=== PATIENT | male | born 1930 | race Caucasian/White ===

== ENCOUNTER 2017-10-20 01:40 | Inpatient (IN) | payer BC, MEDICARE ==
[2017-10-20] VITALS (67 sets, daily range): BP systolic 82–137; BP diastolic 48–94
[~2017-10-20] VITALS: Ht 175.3 cm; Wt 93.4 kg
[~2017-10-20 01:40] MED LIST: ALLO300T2 PO; ASCO-375 PO; Acetaminophen PO; BISA10SU8 RC; COLC0.6T67 PO; CYAN10009 PO; FOLI0.8T PO; Glycerin RC; LACT10SO6 PO; METO2.5T2 PO; MULT1TAB73 PO; POLY17PO4 PO; QUET100T PO; QUET25TA PO; SENN-15 PO; VITA1CAP PO
[2017-10-20] MEDS ORDERED: FUROSEMIDE 20 MG/2 ML VIAL IVP ONE (01:45)
[2017-10-20] MEDS ORDERED: IV NORMAL SALINE 500 ML BAG IV ONE (01:45)
[2017-10-20] MEDS ORDERED: [UNRECOGNIZED DRUG - CODE] TOP (02:02)
[2017-10-20] MEDS ORDERED: CALC-770 PO (02:02)
[2017-10-20] MEDS ORDERED: IPRA3AMP IH (02:02)
[2017-10-20] MEDS ORDERED: POTA20PA3 PO (02:02)
[2017-10-20] MEDS ORDERED: [UNRECOGNIZED DRUG - OTHER] (02:02)
[2017-10-20] MEDS ORDERED: [UNRECOGNIZED DRUG - CODE] PO (02:02)
[2017-10-20] MEDS ORDERED: CYAN10009 PO (02:02)
[2017-10-20] MEDS ORDERED: FURO-152 PO (02:02)
[2017-10-20] MEDS ORDERED: MULT-15 PO (02:02)
[2017-10-20] MEDS ORDERED: GUAI240S8 PO (02:02)
[2017-10-20 02:13] LABS: BASOPHILS # (AUTO) 0.1 K/uL (0.0-8.0); BASOPHILS % (AUTO) 0.4 % (0.0-2.0); HEMATOCRIT 29.8 % (36.7-47.1); HEMOGLOBIN 9.7 g/dL (12.5-16.3); LYMPHOCYTES # (AUTO) 0.7 K/uL (20.0-40.0); LYMPHOCYTES % (AUTO) 5.1 % (20.5-51.5); MEAN CORPUSCULAR HGB CONC 33 g/dL (32.5-36.3); MEAN CORPUSCULAR VOLUME 97.9 fL (73.0-96.2); MONOCYTES # (AUTO) 1.1 K/uL (2.0-10.0); MONOCYTES % (AUTO) 7.6 % (0.0-11.0); NEUTROPHILS # (AUTO) 12.4 K/uL (1.8-8.9); NEUTROPHILS % (AUTO) 86.9 % (38.5-71.5); PLATELET COUNT (AUTO) 168 K/uL (152-348); RED BLOOD CELL COUNT(AUTO) 3.04 MIL/uL (4.06-5.63); WHITE BLOOD COUNT (AUTO) 14.2 K/uL (3.6-10.2)
[2017-10-20 02:14] LABS: *BILIRUBIN,URIN NEGATIVE (NEGATIVE); *BLOOD, URINE 2+ (NEGATIVE); *CLARITY,URINE CLOUDY (CLEAR); *COLOR,URINE YELLOW (YELLOW); *KETONES,URINE NEGATIVE (NEGATIVE); *PROTEIN,URINE 2+ (NEGATIVE); *UROBILINOGEN,URINE 0.2 E.U./dl (NORMAL); LEUKOCYTE ESTERASE ,URINE 1+ (NEGATIVE); NITRITE, URINE NEGATIVE (NEGATIVE); UGLUCOSE NEGATIVE (NEGATIVE)
[2017-10-20 02:26] LABS: BACTERIA,URINE MODERATE /HPF (NONE SEEN); SQUAMOUS EPITHELIAL CELL,UR MODERATE /HPF (NONE SEEN); URINE AMORPHOUS URATE MODERATE /HPF; WBC,URINE 20-50 /HPF (0-3)
[2017-10-20] MEDS ORDERED: LEVOFLOXACIN 750 MG/D5W 150 ML PIGGYBACK IV ONE (02:30)
[2017-10-20] MEDS ORDERED: FUROSEMIDE 40 MG/4 ML VIAL ONE (02:31)
[2017-10-20] MEDS ORDERED: VANCOMYCIN IV 1,000 MG in IV DEXTROSE 5% 250 ML IV ONE (02:45)
[2017-10-20 02:52] LABS: CARBON DIOXIDE 24 mmol/L (21-32); CHLORIDE 113 mmol/L (98-107); CREATININE 3.7 mg/dL (0.6-1.3); GLUCOSE 176 mg/dL (74-106); POTASSIUM 3.9 mmol/L (3.5-5.1); UREA NITROGEN, BLOOD 72 mg/dL (7-18)
[2017-10-20] MEDS ORDERED: LEVOFLOXACIN 750MG/D5W 150 ML IV ONE (02:59)
[2017-10-20 03:14] LABS: BILIRUBIN,DIRECT 0.1 mg/dL (0.0-0.2); BILIRUBIN,TOTAL 0.2 mg/dL (0.1-1.0)
[2017-10-20 03:15] LABS: ALANINE AMINOTRANSFERASE 24 U/L (16-63); ALKALINE PHOSPHATASE 106 U/L (50-136); ASPARTATE AMINOTRANSFERASE 33 U/L (15-37)
--- NOTE | 2017-10-20 03:15 | NUR ---
PATIENT OFF BIPAP, PLACED ON NON-REBREATHER MASK.
[2017-10-20 03:16] LABS: TOTAL PROTEIN, SERUM 6.7 g/dL (6.4-8.2)
--- NOTE | 2017-10-20 03:42 | NUR ---
PATIENT PLACED BACK ON BIPAP.
[2017-10-20] MEDS ORDERED: VANCOMYCIN 1000 MG VIAL ONE (03:43)
--- NOTE | 2017-10-20 04:10 | NUR ---
PATIENT INTUBATED BY DR. BARRIENTOS
[2017-10-20] MEDS ORDERED: MIDAZOLAM HCL 5 MG/ML VIAL ONE (04:24)
[2017-10-20] MEDS: PROPOFOL 100 ML IV PRN ×4 (04:25→20:46)
--- NOTE | 2017-10-20 04:25 | NUR ---
PATIENT STARTED ON PROPOFOL RATE PER POLICY.
[2017-10-20] MEDS ORDERED: PROPOFOL 100 ML ONE (04:31)
[2017-10-20] MEDS ORDERED: NOREPINEPHRINE BITARTRATE 8 MG in IV DEXTROSE 5% 500 ML IV ONE (04:45)
--- NOTE | 2017-10-20 04:45 | NUR ---
STARTED ON LEVOPHED PER POLICY.
[2017-10-20] MEDS ORDERED: NOREPINEPHRINE BITARTRATE 4 MG/4 ML VIAL IV ONE ×2 (04:50→04:51)
--- NOTE | 2017-10-20 05:00 | NUR ---
LEVOPHED RATE AT 23MCG/MIN AT THIS TIME. PROPOFOL RATE AT 20MCG/KG/MIN.
--- NOTE | 2017-10-20 05:35 | NUR ---
Bedside report received from CYLINDER DYER. Patient on mechanical ventilator A/C 18, TV 600, FIO2 100%. ETT 7.5, and aout 23cm lip line. Patient on propofol running at 25mcg/kg/min, also noted to be on levophed running at 23mcg/min SBP within desired limits. Peripheral access patent Bilateral forearms.
--- NOTE | 2017-10-20 05:45 | NUR ---
Pt. admitted to CCU , under care of Isis DUKE Belongs List completed.
[2017-10-20 05:53] LABS: ABG BASE EXCESS -5.6 mmol/L; ABG HCO3 20.5 mmol/L; ABG PCO2 43.2 mmHg (35.0-45.0); ABG PH 7.295 (7.350-7.450); ABG PO2 158.3 mmHg (75.0-100.0); ABG SITE RIGHT RADIAL; ABG TOTAL HEMOGLOBIN 9.8 G/dL (13.5-18.0); COHb 0.3 % (0.5-1.5); MetHb 0.3 % (0.0-1.5); O2Hb 98.2 % (94.0-97.0); VENT MODE VENT - A/C
--- NOTE | 2017-10-20 06:30 | NUR ---
At this time patient arrive from ER. via gurney, on ventilator sedated and with propofol running, Patient situated on ICU bed, patient started waking up at this time, bitting the ETT, triggering ventilator alarm. propofol titrated for sedation. Immediately placed on [id number]. connected to bedside monitor. vitals signs within desired limits, see vitals signs flow sheet.
--- NOTE | 2017-10-20 06:35 | NUR ---
Sepsis protocol completed in E.R. as reported.
--- NOTE | 2017-10-20 06:36 | NUR ---
PT CAME IN BY RESCUE, WITH CPAP MASK IN PLACE AT 100% , PT NOT RESPONDING, TO STIMULI, PT THEN PLACED ON BI/PAP WITH LARGE MASK APPROX, 0200 , WITH INITIAL SETTINGS, 15/5 PSV 10, RR16, 100% THEN TAKEN OFF APPROX, 0310 FOR 10 MINS, THEN PLACED ON NRB MASK @ 100, PT WITH INCREASE RESP. DISTRESS, PT PLACED BACK ON BI/PAP WITH 100%, THEN ABG WAS DRAWN, THEN PT INTUBATED BY DR BARRIENTOS, WITH 7.5 ET/TUBE IN PLACE 23CM LIP LINE, SPUTUM SAMPLE DONE IN ER, WITH HME AND ADKINS , IN PLACE, WITH INITAL VENT SETTINGS, A/C 18, VT 600ML ,100% , PEEP 5, PT DOES ASSIST AT TIMES, RT ASSIST ,PT WAS PLACED ON ALMAGUER VENT @ 0417,THEN REPEAT ABG APPROX, 545, SHOWN TO DR BARRIENTOS, CHANGE FIO2 @ 80%, THEN TAKEN TO CCU 3 WITH RT ASSIST, Claudette FLORES DRIED FRUIT WASHER Addendum: 10/20/17 at 0642 by BRENDA FLORES RT Amended: Links added.
--- NOTE | 2017-10-20 06:45 | NUR ---
A call to admitting physician, and spoke with SECURITIES TELLER. Anna phone report with update see orders.
[2017-10-20] MEDS ORDERED: ZOLPIDEM 5 MG TABLET PO PRN (07:30)
[2017-10-20] MEDS ORDERED: Z GUARD REMEDY PASTE 57 GM TUBE TOP PRN ×2 (07:30→20:45)
[2017-10-20] MEDS ORDERED: PIPERACILLIN/TAZOBACTAM/D5W 3.375 G in PREMIXED 1 EACH IV SCH (07:30)
[2017-10-20] MEDS ORDERED: ONDANSETRON 4 MG/2 ML VIAL IV PRN (07:30)
[2017-10-20] MEDS ORDERED: HYDROCODONE/APAP 5-325MG TABLET PO PRN (07:30)
[2017-10-20] MEDS ORDERED: ACETAMINOPHEN 325 MG TABLET PO PRN (07:30)
--- NOTE | 2017-10-20 07:43 | NUR ---
RECEIVED PT ON ALMAGUER VENT WITH VENT SETTINGS OF AC 18 VT 600, PEEP +5, FIO2 80% . PT IS ORALLY INTUBATED WITH 7.5 ETT APPROXIMATELY 24CM LIP LINE VIA ANCHOR FAST. VENT CHECK DONE. ALARMS CHECKED, ARE ON AND AUDIBLE. SUCTIONED MOD. AMOUNT OF THICK, BLOOD-TINGED SECRETIONS. HME CHANGED. ORAL CARE DONE. NO S/S OF RESPIRATORY DISTRESS NOTED. AMBU BAG IS AT BEDSIDE. NO S/S OF RESPIRATORY DISTRESS NOTED. WILL CONTINUE TO MONITOR PT.
--- NOTE | 2017-10-20 07:44 | NUR ---
A call from Christophe Dumont Pt's son, MR. Saeed updated on his father's condition and call back number received, and given to TOP TAPER MACHINE who later spoke with him and updated him on his dad condition. unit fax number also provided to Mr. Saeed awaiting SAUL to be faxed.
[2017-10-20] MEDS ORDERED: PROPOFOL 100 ML IV PRN (07:45)
--- NOTE | 2017-10-20 08:00 | NUR ---
Orders to insert NG tube received and carried.
[2017-10-20] MEDS: ACETYLCYSTEINE 10% 4ML VIAL NEB SCH ×3 (08:23→23:30)
[2017-10-20] MEDS: IPRATROPIUM BROMIDE 0.5 MG/2.5 ML NEBU NEB PRN ×3 (08:23→23:31)
[2017-10-20] MEDS: ALBUTEROL SULFATE 2.5 MG/3 ML NEBU NEB PRN ×3 (08:23→23:31)
[2017-10-20] MEDS ORDERED: HEPARIN SODIUM,PORCINE 5,000 UNITS/ML VIAL SQ SCH (09:00)
[2017-10-20] MEDS ORDERED: CALCIUM CARBONATE PO SCH (09:00)
[2017-10-20] MEDS ORDERED: VITAMIN D3 PO SCH (09:00)
[2017-10-20] MEDS ORDERED: MULTIVITAMINS PO SCH (09:00)
[2017-10-20] MEDS ORDERED: [UNRECOGNIZED DRUG - OTHER] PO SCH (09:00)
[2017-10-20] MEDS: NOREPINEPHRINE BITARTRATE 8 MG in IV DEXTROSE 5% 500 ML IV PRN ×3 (09:13→22:56)
[2017-10-20] MEDS ORDERED: SUCCINYLCHOLINE CHLORIDE 200 MG/10 ML VIAL IV ONE (10:15)
--- NOTE | 2017-10-20 10:23 | NUR ---
REGGIE in progress.
--- NOTE | 2017-10-20 10:41 | NUR ---
troponin 0f 0.853 notified to physician
[2017-10-20] MEDS ORDERED: ASPIRIN 325 MG TABLET GT ONE (11:00)
[2017-10-20] MEDS: CYANOCOBALAMIN 1,000 MCG TABLET PO SCH (11:25)
[2017-10-20] MEDS: ALLOPURINOL 300 MG TABLET PO SCH (11:25)
[2017-10-20] MEDS: MULTIVITAMINS,THERAPEUTIC TABLET PO SCH (11:25)
[2017-10-20] MEDS: LACTULOSE 20 G/30 ML LIQUID UDC PO SCH ×2 (11:25→20:47)
[2017-10-20] MEDS: CALCIUM CARB/VITAMIN D 500MG-200UNITS TABLET PO SCH (11:25)
--- NOTE | 2017-10-20 11:30 | NUR ---
DR. Mora in the unit to examine patient, full report given orders received, see order hx.
--- NOTE | 2017-10-20 11:30 | NUR ---
Dr. Winston in the unit to examine patient, full report given orders to start heparin drip received. Addendum: 10/20/17 at 1833 by ANNIE SUNG RN standing orders to bolus patient with 500-1000 ml normal saline if sbp does not improve.
[2017-10-20] MEDS: IV NS 1000 ML 1,000 ML IV PRN (11:35)
[2017-10-20] MEDS ORDERED: HEPARIN SODIUM,PORCINE 5,000 UNITS/ML VIAL IV ONE (12:00)
[2017-10-20] MEDS ORDERED: HEPARIN SODIUM,PORCINE 5,000 UNITS/ML VIAL IV PRN (12:00)
[2017-10-20] MEDS: HEPARIN/D5W DRIP 500 ML IV PRN (12:06)
[2017-10-20] MEDS: PANTOPRAZOLE SODIUM 40 MG VIAL IV SCH (12:31)
[2017-10-20] MEDS: MEROPENEM 0.5 G in IV NORMAL SALINE 50 ML IV SCH (13:15)
--- NOTE | 2017-10-20 13:15 | NUR ---
FIO2 down to 70%.
--- NOTE | 2017-10-20 14:10 | NUR ---
FIO@ down to 60% at this time as reported.
--- NOTE | 2017-10-20 14:15 | NUR ---
PICC line insertion finished at this time. IV site noted to be bloody pressure dressing applied.
--- NOTE | 2017-10-20 16:39 | NUR ---
PHARMACY CLINICAL NOTES(VANCOMYCIN DOSING) S: 87 YO MALE WITH DX OF UTI, SEPSIS AND HCAP O: BUN/SCR 72/3.7, WBC 14.2, TEMP 97.9 A/P: PT RECEIVED VANCOMYCIN 1 GM ON 10/20 @ 0330 , DUE TO ADVANCED AGE AND COMPROMISED RENAL FXN WILL DOSE VANCOMYCIN BY FALL OF THE LEVEL. ORDERED VANCOMYCIN LEVEL IN AM (0600) WITH OTHER LABS. WILL CK LEVEL AND DOSE ACCORDINGLY.
--- NOTE | 2017-10-20 18:33 | NUR ---
Patient left in bed resting SBP within desire limits levophed running at 12mcg/min with no need for NS bolus. On ventilator with FIO2 titrated to maintain saturation above or equals to 94%. NG tube patent, and placement verified by KUB. mullins catheter patent with output wnl. see I&O flow sheet. Adequately sedated with propofol at 40mcg/kg min. and on Heparin drip at 1000units/hr, as calculated by pharmacist and per AC protocol. PTT just drawn. awaiting for results. Addendum: 10/20/17 at 1839 by ANNIE SUNG RN Repositioned [id number] with no skin breakdown noted.
--- NOTE | 2017-10-20 20:00 | NUR ---
RECEIVED PT ORALLY INTUBATED TO VENT, W/ SETTINGS OF AC-18, TV-600, FIO2-50%, PEEP-+5, O2 SAT 98-100%. SUCTIONED VIA ETT & OROPHARYNGEALLY W/ THICK MOD. TANNISH MUCOUS. ON DIPRIVAN DRIP @ 40MCQ/KG/MIN VIA PICC LINE ON EJ. ON LEVOPHED DRIP @ 12MCQ/MIN. IVF NS @ 75CC/HR. REPOSITIONED ON HIS SIDE W/ HOB ELEVATED. AFEBRILE. ON HEPARIN DRIP ON HOLD FOR 1HR STARTED @ 1940 ACCDG TO PTT RESULT.
--- NOTE | 2017-10-20 20:40 | NUR ---
RESUMED HEPARIN DRIP @ 750 UNITS/HR ACCDG TO ACS PROTOCOL, WILL RECHECKED PTT @ 0240.
[2017-10-20] MEDS: Z GUARD REMEDY PASTE 57 GM TUBE TOP SCH (21:14)
--- NOTE | 2017-10-20 22:00 | NUR ---
HS CARE DONE, ORAL CARE DONE. REPOSITIONED & SUCTIONED .
[2017-10-20] MEDS: LORAZEPAM 2 MG/1 ML VIAL IV PRN (23:39)
[2017-10-20] MEDS ORDERED: LORAZEPAM 2 MG/1 ML VIAL ONE (23:51)
[2017-10-21] VITALS (92 sets, daily range): BP systolic 86–140; BP diastolic 40–79
[2017-10-21] MEDS: PROPOFOL 100 ML IV PRN ×6 (00:16→22:49)
--- NOTE | 2017-10-21 00:34 | NUR ---
PT ON CONT ALMAGUER VENT WITH 7.5 ET/TUBE IN PLACE, 24CM LIP LINE AND SECURED WITH ANCHOR FAST, ADJUST SIDE TO SIDE THEN CENTER, PT IS RESTLESS AT TIMES, WITH ORAL AIRWAY IN PLACE, PT IS SEDATED , PT DOES ASSIST AT TIMES, SUCTIONED LIGHT PALE YELL TINGE SECRETIONS, AND SUCTION MOUTH WITH YANKAUER, ORAL CARE DONE, CHANGE HME, CHECK CUFF 23CM WITH CUFF MANOMETER, NEB INLINE WITH ALBUTEROL/ ATROVENT/ MUCOMYST TOLL WELL, VENT SETTINGS, A/C 18,VT 600ML, PEEP5, 50%,. D MARK Addendum: 10/21/17 at 0043 by BRENDA FLORES RT Amended: Links added.
[2017-10-21] MEDS: IV NS 1000 ML 1,000 ML IV PRN ×2 (01:50→17:57)
--- NOTE | 2017-10-21 04:00 | NUR ---
PTT-77.9 SECS,DECREASED HEPARIN DRIP TO 650 UNITS /HR. WILL DO PTT @ 1000.
--- NOTE | 2017-10-21 04:15 | NUR ---
AM CARE DONE, ORAL CARE DONE Q2H. HAD MODERATE SOFT STOOL NOTED, Z-GUARD CREAM APPLIED TO PERIANAL AREA.
--- NOTE | 2017-10-21 06:00 | NUR ---
REPOSITIONED ON HIS SIDE W/ HOB ELEVATED AFTER CXR DONE.
[2017-10-21 06:32] LABS: ALANINE AMINOTRANSFERASE 22 U/L (16-63); ALKALINE PHOSPHATASE 86 U/L (50-136); ASPARTATE AMINOTRANSFERASE 27 U/L (15-37); BILIRUBIN,TOTAL 0.3 mg/dL (0.2-1.0); CARBON DIOXIDE 22 mmol/L (21-32); CHLORIDE 109 mmol/L (98-107); CREATININE 3.5 mg/dL (0.6-1.3); GLUCOSE 105 mg/dL (74-106); PHOSPHOROUS 4.3 mg/dL (2.5-4.9); POTASSIUM 2.9 mmol/L (3.5-5.1); TOTAL PROTEIN, SERUM 5.6 g/dL (6.4-8.2); UREA NITROGEN, BLOOD 74 mg/dL (7-18); VANCOMYCIN,RANDOM 7.9 ug/mL (18.0-26.0)
[2017-10-21 06:36] LABS: BASOPHILS % (AUTO) 0.2 % (0.0-2.0); EOSINOPHILS # (AUTO) 0.2 K/uL (0.0-0.7); LYMPHOCYTES # (AUTO) 0.8 K/uL (20.0-40.0); MONOCYTES # (AUTO) 0.5 K/uL (2.0-10.0)
[2017-10-21 06:41] LABS: THYROID STIMULATING HORMONE 1.145 mIU/mL (0.358-3.740)
[2017-10-21 06:54] LABS: CHOLESTEROL 71 mg/dL (<200); HDL CHOLESTEROL 27 mg/dL (40-60); TRIGLYCERIDES 105 MG/DL (30-150)
[2017-10-21 06:56] LABS: EOSINOPHILS % (AUTO) 1.5 % (0.0-7.0); LYMPHOCYTES % (AUTO) 7.8 % (20.5-51.5); MEAN CORPUSCULAR HEMOGLOBIN 31.6 uug (23.8-33.4); MEAN CORPUSCULAR HGB CONC 33 g/dL (32.5-36.3); MEAN CORPUSCULAR VOLUME 94.7 fL (73.0-96.2); NEUTROPHILS # (AUTO) 9.1 K/uL (1.8-8.9); NEUTROPHILS % (AUTO) 85.5 % (38.5-71.5); PLATELET COUNT (AUTO) 147 K/uL (152-348); RED BLOOD CELL COUNT(AUTO) 2.65 MIL/uL (4.06-5.63)
[2017-10-21 06:57] LABS: HEMATOCRIT 25.1 % (36.7-47.1); HEMOGLOBIN 8.4 g/dL (12.5-16.3); WHITE BLOOD COUNT (AUTO) 10.6 K/uL (3.6-10.2)
[2017-10-21] MEDS: ACETYLCYSTEINE 10% 4ML VIAL NEB SCH ×3 (07:25→22:56)
[2017-10-21] MEDS: ALBUTEROL SULFATE 2.5 MG/3 ML NEBU NEB PRN ×3 (07:25→22:53)
[2017-10-21] MEDS ORDERED: POTASSIUM CHLORIDE 20 MEQ POWDER PACKET GT ONE (08:45)
[2017-10-21] MEDS: MULTIVITAMINS,THERAPEUTIC TABLET PO SCH (09:12)
[2017-10-21] MEDS: CYANOCOBALAMIN 1,000 MCG TABLET PO SCH (09:12)
[2017-10-21] MEDS: CALCIUM CARB/VITAMIN D 500MG-200UNITS TABLET PO SCH (09:12)
[2017-10-21] MEDS: ASPIRIN 81 MG TAB.CHEW PO SCH (09:12)
[2017-10-21] MEDS: LACTULOSE 20 G/30 ML LIQUID UDC PO SCH ×2 (09:13→21:32)
[2017-10-21] MEDS: PANTOPRAZOLE SODIUM 40 MG VIAL IV SCH (09:13)
[2017-10-21] MEDS: Z GUARD REMEDY PASTE 57 GM TUBE TOP SCH ×2 (09:22→21:32)
[2017-10-21] MEDS: ALLOPURINOL 300 MG TABLET PO SCH (09:29)
[2017-10-21 09:34] LABS: ABG BASE EXCESS -1.6 mmol/L; ABG HCO3 21.1 mmol/L; ABG PCO2 27.9 mmHg (35.0-45.0); ABG PH 7.496 (7.350-7.450); ABG PO2 144.6 mmHg (75.0-100.0); ABG SITE LEFT RADIAL; ABG TOTAL HEMOGLOBIN 8.7 G/dL (13.5-18.0); COHb 0.7 % (0.5-1.5); MetHb 0.3 % (0.0-1.5); O2Hb 98.1 % (94.0-97.0); VENT MODE VENT - A/C; VT, ABG 600 mL
--- NOTE | 2017-10-21 10:00 | NUR ---
potassium replaced with 30meq kcl via ngt Addendum: 10/21/17 at 2024 by LADONNA REN RN Amended: Links added.
--- NOTE | 2017-10-21 12:00 | NUR ---
seen by dr tg major received. placed on ac14 fi02 40% Addendum: 10/21/17 at 2019 by LADONNA REN RN Amended: Links added. Addendum: 10/21/17 at 2020 by LADONNA REN RN Amended: Links added.
--- NOTE | 2017-10-21 12:16 | NUR ---
PHARMACY CLINICAL NOTES(VANCOMYCIN DOSING) S: 87 YO MALE WITH DX OF UTI, SEPSIS AND HCAP O: BUN/SCR 74/3.5, WBC 10.6, TEMP 97.8 Vancomycin random today at 0600 was 7.9 A/P: Will continue to dose by fall-off random level(ARF, not HD yet) due to decreased renal function. Vancomycin 1gram IVPB x1 will be given today(scheduled to give at 1230). Vancomycin random is on order for tomorrow am for further dosing. Will follow daily.
[2017-10-21] MEDS ORDERED: VANCOMYCIN IV 1 G in PREMIXED 0 EACH IV ONE (12:30)
[2017-10-21] MEDS: MEROPENEM 0.5 G in IV NORMAL SALINE 50 ML IV SCH ×4 (13:15→23:20)
[2017-10-21] MEDS: NOREPINEPHRINE BITARTRATE 8 MG in IV DEXTROSE 5% 500 ML IV PRN (13:56)
[2017-10-21] MEDS: LORAZEPAM 2 MG/1 ML VIAL IV PRN (14:14)
--- NOTE | 2017-10-21 15:00 | NUR ---
seen by dr coelho. orders received. patient placed as DNR/DNI per familys request.pt son had conversation with dr coleho re code status Addendum: 10/21/17 at 2020 by LADONNA REN RN Amended: Links added.
--- NOTE | 2017-10-21 19:00 | NUR ---
REPORT GIVEN TO Berna.. Addendum: 10/21/17 at 2021 by LADONNA REN RN Amended: Links added.
--- NOTE | 2017-10-21 19:23 | NUR ---
Report received from LESLY Daniels. Pt resting quietly, orally intubated with 7.0 OETT secured at 24 cm @ right lip on ACVC rate 14, Fio2 40%, TV 600 PEEP 5, Right nare NGT clamped, secured at 74 cm to right nare. Fitzpatrick catheter draining to gravity bag with clear, yellow urine, RUE PICC with Heparin running @ 550 units/hr - 11ml/hr, Levophed @ 36.5 ml/hr = 9 mcg/min, Propofol @ 40 mcg/kg/min and NS @ 75 ml/hr. Heparin PTT is due now, I spoke with production operations engineer via telephone who is on his way up to draw.
[2017-10-21] MEDS: HEPARIN/D5W DRIP 500 ML IV PRN (22:01)
--- NOTE | 2017-10-21 22:13 | NUR ---
RECEIVED PT ON A ALMAGUER VENTILATOR WITH THE FOLLOWING SETTINGS: AC 14, VT 600, PEEP +5, 35%. PATIENT IS ORALLY INTUBATED WITH A 7.5 ET TUBE, APPROX. 24 CM LIP LINE. HME CHANGED. PATIENT HAS A BITE BLOCK ON. SUCTIONED SMALL AMOUNTS OF THICK YELLOW SECRETIONS. VENT IS PLUGGED IN RED OUTLET. VENT SETTINGS ARE ON AND AUDIBLE. AMBU BAG IS BY BEDSIDE. NO SOB NOTED AT THIS TIME. WILL CONTINUE TO MONITOR.
[2017-10-21] MEDS: IPRATROPIUM BROMIDE 0.5 MG/2.5 ML NEBU NEB PRN (22:53)
[2017-10-22] VITALS (38 sets, daily range): BP systolic 74–138; BP diastolic 43–77
[2017-10-22] MEDS: PROPOFOL 100 ML IV PRN ×3 (01:35→06:52)
[2017-10-22] MEDS: NOREPINEPHRINE BITARTRATE 8 MG in IV DEXTROSE 5% 500 ML IV PRN (03:58)
[2017-10-22 05:58] LABS: BASOPHILS % (AUTO) 0.3 % (0.0-2.0); EOSINOPHILS # (AUTO) 0.2 K/uL (0.0-0.7); EOSINOPHILS % (AUTO) 2.6 % (0.0-7.0); HEMATOCRIT 25.2 % (36.7-47.1); HEMOGLOBIN 8.3 g/dL (12.5-16.3); LYMPHOCYTES # (AUTO) 0.8 K/uL (20.0-40.0); LYMPHOCYTES % (AUTO) 11.3 % (20.5-51.5); MEAN CORPUSCULAR HEMOGLOBIN 31.2 uug (23.8-33.4); MEAN CORPUSCULAR HGB CONC 33 g/dL (32.5-36.3); MEAN CORPUSCULAR VOLUME 94.8 fL (73.0-96.2); MONOCYTES # (AUTO) 0.6 K/uL (2.0-10.0); MONOCYTES % (AUTO) 8.7 % (0.0-11.0); NEUTROPHILS # (AUTO) 5.1 K/uL (1.8-8.9); NEUTROPHILS % (AUTO) 77.1 % (38.5-71.5); PLATELET COUNT (AUTO) 154 K/uL (152-348); RED BLOOD CELL COUNT(AUTO) 2.66 MIL/uL (4.06-5.63); WHITE BLOOD COUNT (AUTO) 6.7 K/uL (3.6-10.2)
[2017-10-22 06:19] LABS: CARBON DIOXIDE 22 mmol/L (21-32); CHLORIDE 111 mmol/L (98-107); CREATININE 3.1 mg/dL (0.6-1.3); GLUCOSE 101 mg/dL (74-106); MAGNESIUM 1.9 mg/dL (1.8-2.4); PHOSPHOROUS 4.5 mg/dL (2.5-4.9); POTASSIUM 3.4 mmol/L (3.5-5.1); UREA NITROGEN, BLOOD 62 mg/dL (7-18)
[2017-10-22 06:52] LABS: VANCOMYCIN,RANDOM 15.2 ug/mL (18.0-26.0)
[2017-10-22] MEDS: ACETYLCYSTEINE 10% 4ML VIAL NEB SCH ×3 (07:25→22:52)
[2017-10-22] MEDS: ALBUTEROL SULFATE 2.5 MG/3 ML NEBU NEB PRN ×3 (07:25→22:51)
[2017-10-22] MEDS: IPRATROPIUM BROMIDE 0.5 MG/2.5 ML NEBU NEB PRN ×3 (07:25→22:51)
--- NOTE | 2017-10-22 07:25 | NUR ---
PT REC'D ON A ALMAGUER VENT SETTINGS: AC 14, VT 600, PEEP +5, 40%. PATIENT IS ORALLY INTUBATED WITH A 7.5 ET TUBE, APPROX. 24 CM LIP LINE. HME CHANGED. PATIENT HAS A BITE BLOCK ON. SUCTIONED SMALL AMOUNTS OF THICK YELLOW SECRETIONS. VENT IS PLUGGED IN RED OUTLET. VENT SETTINGS ARE ON AND AUDIBLE. AMBU BAG IS BY BEDSIDE. NO SOB NOTED AT THIS TIME. WILL CONTINUE TO MONITOR.
[2017-10-22 10:06] LABS: ABG BASE EXCESS -4.9 mmol/L; ABG HCO3 19.7 mmol/L; ABG PCO2 34.4 mmHg (35.0-45.0); ABG PH 7.376 (7.350-7.450); ABG PO2 84.4 mmHg (75.0-100.0); ABG SITE LEFT RADIAL; ABG TOTAL HEMOGLOBIN 8.4 G/dL (13.5-18.0); COHb 1.3 % (0.5-1.5); MetHb 0.4 % (0.0-1.5); O2Hb 93.6 % (94.0-97.0); VENT MODE VENT - CPAP/PS6
[2017-10-22] MEDS ORDERED: VANCOMYCIN IV 1 G in PREMIXED 0 EACH IV ONE (11:00)
[2017-10-22] MEDS ORDERED: DC PROPOFOL ONCE EXTUBATED XX PRN (11:10)
[2017-10-22] MEDS: CYANOCOBALAMIN 1,000 MCG TABLET PO SCH (11:15)
[2017-10-22] MEDS: CALCIUM CARB/VITAMIN D 500MG-200UNITS TABLET PO SCH (11:15)
[2017-10-22] MEDS: MEROPENEM 0.5 G in IV NORMAL SALINE 50 ML IV SCH (11:16)
[2017-10-22] MEDS: PANTOPRAZOLE SODIUM 40 MG VIAL IV SCH (11:16)
[2017-10-22] MEDS: ALLOPURINOL 300 MG TABLET PO SCH (11:29)
[2017-10-22] MEDS: IV NS 1000 ML 1,000 ML IV PRN (11:44)
--- NOTE | 2017-10-22 11:45 | NUR ---
PHARMACY CLINICAL NOTES(VANCOMYCIN DOSING) S: 87 YO MALE WITH DX OF UTI, SEPSIS AND HCAP O: BUN/SCR 62/3.1, WBC 6.7, TEMP 97.8 Vancomycin random today at 0600 was 15.2 A/P: Will continue to dose by fall-off random level(ARF, not HD yet) due to decreased renal function. Vancomycin 1gram IVPB x1 dosed today at 1100, random ordered for tomorrow with am labs. Will follow
[2017-10-22] MEDS: MULTIVITAMINS,THERAPEUTIC TABLET PO SCH (11:59)
[2017-10-22] MEDS: ASPIRIN 81 MG TAB.CHEW PO SCH (11:59)
[2017-10-22] MEDS: LACTULOSE 20 G/30 ML LIQUID UDC PO SCH ×2 (11:59→21:00)
[2017-10-22] MEDS: Z GUARD REMEDY PASTE 57 GM TUBE TOP SCH ×2 (12:01→22:07)
--- NOTE | 2017-10-22 16:10 | NUR ---
PT EXTUBATED PER MD ORDER. PT PLACED TO NC 6L. MD ORDER FOR PRN BiPAP FOR DISTRESS.
[2017-10-22] MEDS ORDERED: POTASSIUM CHLORIDE 10 MEQ CAPSULE.SA PO ONE (16:30)
--- NOTE | 2017-10-22 17:35 | NUR ---
PT PLACED TO BiPAP. DISTRESS NOTED.
--- NOTE | 2017-10-22 18:43 | NUR ---
PT REC'D ON A ALMAGUER VENT SETTINGS: AC 14, VT 600, PEEP +5, 3%. PATIENT IS ORALLY INTUBATED WITH A 7.5 ET TUBE, APPROX. 24 CM LIP LINE. HME CHANGED. PATIENT HAS A BITE BLOCK ON. SUCTIONED SMALL AMOUNTS OF THICK YELLOW SECRETIONS. VENT IS PLUGGED IN RED OUTLET. VENT SETTINGS ARE ON AND AUDIBLE. AMBU BAG IS BY BEDSIDE. NO SOB NOTED AT THIS TIME. WILL CONTINUE TO MONITOR. Addendum: 10/22/17 at 1845 by KATHY BOO RT WRONG TIME DOC
--- NOTE | 2017-10-22 19:28 | NUR ---
Pt transferred from CCU-3 to room 215 on NRM @15lpm and placed back on BiPAP with the following settings of I-15, E-5, RR-15, PS-10, FIO2-60%, leak-43. No respiratory distress noted. Airway care done. Placed pt on pulse ox. Alarms on and audible.
--- NOTE | 2017-10-22 22:32 | NUR ---
Received pt upon transfer from ICU to telemetry room 215 accompanied by respiratory therapist and day shift RN Nils, report received from Nils. Pt is on Bipap 60% I = 15, E = 5, pulse ox with good waveform shows 99 - 100% Spo2, respirations are even, unlabored, bilateral breath sounds reflect diminished breath sounds with some rhonchi. Suction set up at bedside, ambu bag available, alarms are activated. R upper arm triple lumen PICC saline locked. NGT clamped. Urethral mullins catheter draining to gravity bag. Skin is grossly intact, but there are light reddened areas on upper thighs, no exudate. Pt with eyes closed, localizes to noxious stimuli, but basically quiet. Bed in low position, call light within reach, bed exit alarm activated, pts' room is by nurses station, bed wheels are locked. Monitoring pt for safety and changes. Pt has had a large bowel movement upon admit, pt bathed and linens changed. Held PM Lactulose.
[2017-10-23] VITALS (11 sets, daily range): BP systolic 66–130; BP diastolic 27–67
--- NOTE | 2017-10-23 00:10 | NUR ---
Lower FIO2 to 50%, LESLY Sandoval notified.
[2017-10-23] MEDS: MEROPENEM 0.5 G in IV NORMAL SALINE 50 ML IV SCH ×2 (00:23→13:08)
[2017-10-23] MEDS: IV NS 1000 ML 1,000 ML IV PRN (03:40)
--- NOTE | 2017-10-23 06:36 | NUR ---
Pts' son phoned to check on pt status, update given. Asked if patient had "woken up yet". I advised that he has been calm throughout the night, only opens eyes when turned or repositioned, occasionally moves legs in bed spontaneously, localizes to stimuli. Pts' son state that "when he wakes up, he will need a sitter, he will try to pull out his lines, get out of bed, etc". I advised that I would pass this information along. I advised my roller mechanic charge nurseMeseret of this and will also pass on to day shift RN assigned to patient.
[2017-10-23 07:16] LABS: BASOPHILS % (AUTO) 0.2 % (0.0-2.0); EOSINOPHILS # (AUTO) 0.3 K/uL (0.0-0.7); EOSINOPHILS % (AUTO) 3.8 % (0.0-7.0); HEMATOCRIT 23.5 % (36.7-47.1); HEMOGLOBIN 7.8 g/dL (12.5-16.3); LYMPHOCYTES # (AUTO) 0.9 K/uL (20.0-40.0); LYMPHOCYTES % (AUTO) 12.6 % (20.5-51.5); MEAN CORPUSCULAR HEMOGLOBIN 31.7 uug (23.8-33.4); MEAN CORPUSCULAR HGB CONC 33 g/dL (32.5-36.3); MEAN CORPUSCULAR VOLUME 95.1 fL (73.0-96.2); MONOCYTES # (AUTO) 0.5 K/uL (2.0-10.0); MONOCYTES % (AUTO) 7.6 % (0.0-11.0); NEUTROPHILS # (AUTO) 5.4 K/uL (1.8-8.9); NEUTROPHILS % (AUTO) 75.8 % (38.5-71.5); PLATELET COUNT (AUTO) 126 K/uL (152-348); WHITE BLOOD COUNT (AUTO) 7.2 K/uL (3.6-10.2)
[2017-10-23 07:26] LABS: RED BLOOD CELL COUNT(AUTO) 2.47 MIL/uL (4.06-5.63)
[2017-10-23] MEDS: ACETYLCYSTEINE 10% 4ML VIAL NEB SCH ×3 (07:36→22:31)
[2017-10-23] MEDS: ALBUTEROL SULFATE 2.5 MG/3 ML NEBU NEB PRN ×3 (07:36→22:31)
[2017-10-23] MEDS: IPRATROPIUM BROMIDE 0.5 MG/2.5 ML NEBU NEB PRN ×3 (07:36→22:32)
[2017-10-23 07:40] LABS: CARBON DIOXIDE 23 mmol/L (21-32); CHLORIDE 116 mmol/L (98-107); CREATININE 3.3 mg/dL (0.6-1.3); GLUCOSE 85 mg/dL (74-106); MAGNESIUM 1.9 mg/dL (1.8-2.4); PHOSPHOROUS 5.3 mg/dL (2.5-4.9); POTASSIUM 4.1 mmol/L (3.5-5.1); UREA NITROGEN, BLOOD 67 mg/dL (7-18); VANCOMYCIN,RANDOM 19.4 ug/mL (18.0-26.0)
[2017-10-23 08:59] LABS: ABG BASE EXCESS -5.8 mmol/L; ABG HCO3 20.1 mmol/L; ABG PCO2 41.6 mmHg (35.0-45.0); ABG PH 7.302 (7.350-7.450); ABG PO2 145.9 mmHg (75.0-100.0); ABG SITE LEFT RADIAL; ABG TOTAL HEMOGLOBIN 8.3 G/dL (13.5-18.0); COHb 1.3 % (0.5-1.5); MetHb 0.7 % (0.0-1.5); VENT MODE BIPAP 15/5
[2017-10-23] MEDS: CYANOCOBALAMIN 1,000 MCG TABLET PO SCH (09:22)
[2017-10-23] MEDS: CALCIUM CARB/VITAMIN D 500MG-200UNITS TABLET PO SCH (09:22)
[2017-10-23] MEDS: MULTIVITAMINS,THERAPEUTIC TABLET PO SCH (09:22)
[2017-10-23] MEDS: ALLOPURINOL 300 MG TABLET PO SCH (09:22)
[2017-10-23] MEDS: PANTOPRAZOLE ORAL SUSPENSION 40 MG SUSPDR.PKT NG SCH (09:22)
[2017-10-23] MEDS: ASPIRIN 81 MG TAB.CHEW PO SCH (09:23)
[2017-10-23] MEDS: Z GUARD REMEDY PASTE 57 GM TUBE TOP SCH ×2 (09:25→21:00)
[2017-10-23] MEDS: LACTULOSE 20 G/30 ML LIQUID UDC PO SCH ×2 (09:27→21:00)
--- NOTE | 2017-10-23 12:00 | NUR ---
PATIENT RECEIVED IN BED. NO S/S OF DISTRESS NOTED UPON REPORT. RT TOOK HIM OFF FROM BIPAP WITH O2 SAT >95%, ONE HOUR LATER PATIENT STARTED TO DESAT AT 70%, PATIENT ON BIPAP AGAIN WITH A OXYGENATION OF 94%. SON NEGRITO CALLED, AN UPDATE WAS GIVEN. DR. MCELROY AWARE OF PATIENT'S OXYGENATION STATUS. PICC LINE STILL INTACT. FC
--- NOTE | 2017-10-23 12:00 | NUR ---
PHARMACY CLINICAL NOTES(VANCOMYCIN DOSING) S: 87 YO MALE WITH DX OF UTI, SEPSIS AND HCAP O: BUN/SCR 67/3.3, WBC 7.2, TEMP 100.1 Vancomycin random today at 0600 was 19.4 A/P: Will continue to dose by fall-off random level(ARF, not HD yet) due to decreased renal function. Vancomycin 1gram IVPB x1 dosed today at 1400, random ordered for 10/25/17 with am labs. Will follow
--- NOTE | 2017-10-23 12:05 | NUR ---
SAFETY AND COMFORT WAS PROVIDED BY STAFF. WILL CONTINUE MONITORING.
--- NOTE | 2017-10-23 13:42 | NUR ---
MG FLEMING NOTIFIED ME ABOUT PATIENT'S O2 SAT 88%, PATIENT CONTINUE DESATURATING TO 70%, RT WAS INFORMED. MD AWARE. WILL CONTINUE CLOSELY MONITORING.
[2017-10-23] MEDS ORDERED: VANCOMYCIN IV 1 G in PREMIXED 0 EACH IV ONE (14:00)
[2017-10-23] MEDS ORDERED: IV NORMAL SALINE 500 ML BAG IV ONE (16:00)
[2017-10-23] MEDS ORDERED: IV NORMAL SALINE 500 ML IV ONE (16:00)
--- NOTE | 2017-10-23 17:07 | NUR ---
BP DROPPED TO 66/[address] PEÑA NOTIFED. A BOLUS WAS ADMINISTERED, AND EFFECTIVE BP NOW IS 122/58 HR 100. WILL CONTINUE MONITORING.
--- NOTE | 2017-10-23 18:25 | NUR ---
PATIENT BP 115/70 O2 SAT 100% HR 94. NO S/S OF DISTRESS NOTED. PATIENT CONTINUE TO BE IN BIPAP. MEDICATIONS WERE GIVEN ORDERED. SAFETY AND COMFORT PROVIDED BY STAFF. REPORT WILL BE GIVEN TO THE NEXT SHIFT NURSE.
--- NOTE | 2017-10-23 19:05 | NUR ---
PT RECEIVED ON BIPAP 15/5, RATE 15, 100% FIO2. PT IS TOLERATING BIPAP MASK AND SETTINGS WELL, NO RESPIRATORY DISTRESS NOTED. ORAL AIRWAY IS IN PLACE, PT IS ON CONTINUOUS PULSE OX. WILL CONTINUE TO MONITOR THROUGHOUT SHIFT.
[2017-10-23] MEDS ORDERED: FUROSEMIDE 40 MG/4 ML VIAL IV ONE (19:45)
--- NOTE | 2017-10-23 19:45 | NUR ---
NOTE TO PHARMACY: LASIX GIVEN; BUT, CHARTED ELSEWHERE in eMar.
[2017-10-23] MEDS ORDERED: FUROSEMIDE 40 MG/4 ML VIAL ONE (22:07)
[2017-10-24] MEDS: MEROPENEM 0.5 G in IV NORMAL SALINE 50 ML IV SCH ×2 (00:01→12:56)
[2017-10-24 03:42] VITALS: BP 103/49
[2017-10-24 07:11] LABS: BASOPHILS % (AUTO) 0.1 % (0.0-2.0); EOSINOPHILS # (AUTO) 0.6 K/uL (0.0-0.7); EOSINOPHILS % (AUTO) 5.5 % (0.0-7.0); HEMATOCRIT 25.2 % (36.7-47.1); HEMOGLOBIN 8.3 g/dL (12.5-16.3); LYMPHOCYTES # (AUTO) 0.9 K/uL (20.0-40.0); LYMPHOCYTES % (AUTO) 8.6 % (20.5-51.5); MEAN CORPUSCULAR HEMOGLOBIN 31.6 uug (23.8-33.4); MEAN CORPUSCULAR HGB CONC 33 g/dL (32.5-36.3); MEAN CORPUSCULAR VOLUME 96.1 fL (73.0-96.2); MONOCYTES # (AUTO) 0.7 K/uL (2.0-10.0); NEUTROPHILS # (AUTO) 8.1 K/uL (1.8-8.9); NEUTROPHILS % (AUTO) 78.8 % (38.5-71.5); PLATELET COUNT (AUTO) 130 K/uL (152-348); RED BLOOD CELL COUNT(AUTO) 2.63 MIL/uL (4.06-5.63); WHITE BLOOD COUNT (AUTO) 10.3 K/uL (3.6-10.2)
[2017-10-24] MEDS: ACETYLCYSTEINE 10% 4ML VIAL NEB SCH ×2 (07:18→15:04)
[2017-10-24] MEDS: ALBUTEROL SULFATE 2.5 MG/3 ML NEBU NEB PRN (07:18)
[2017-10-24 07:47] LABS: ALANINE AMINOTRANSFERASE 78 U/L (16-63); ALKALINE PHOSPHATASE 169 U/L (50-136); ASPARTATE AMINOTRANSFERASE 90 U/L (15-37); BILIRUBIN,TOTAL 0.3 mg/dL (0.2-1.0); CARBON DIOXIDE 20 mmol/L (21-32); CHLORIDE 118 mmol/L (98-107); CREATININE 4.4 mg/dL (0.6-1.3); GLUCOSE 92 mg/dL (74-106); PHOSPHOROUS 7.9 mg/dL (2.5-4.9); POTASSIUM 4.6 mmol/L (3.5-5.1); TOTAL PROTEIN, SERUM 5.5 g/dL (6.4-8.2)
[2017-10-24 08:13] LABS: UREA NITROGEN, BLOOD 82 mg/dL (7-18)
[2017-10-24 08:42] LABS: MAGNESIUM 2.4 mg/dL (1.8-2.4)
[2017-10-24] MEDS: MULTIVITAMINS,THERAPEUTIC TABLET PO SCH (10:12)
[2017-10-24] MEDS: CALCIUM CARB/VITAMIN D 500MG-200UNITS TABLET PO SCH (10:12)
[2017-10-24] MEDS: LACTULOSE 20 G/30 ML LIQUID UDC PO SCH (10:12)
[2017-10-24] MEDS: ASPIRIN 81 MG TAB.CHEW PO SCH (10:12)
[2017-10-24] MEDS: CYANOCOBALAMIN 1,000 MCG TABLET PO SCH (10:12)
[2017-10-24] MEDS: ALLOPURINOL 300 MG TABLET PO SCH (10:12)
[2017-10-24] MEDS: PANTOPRAZOLE ORAL SUSPENSION 40 MG SUSPDR.PKT NG SCH (10:12)
[2017-10-24] MEDS: Z GUARD REMEDY PASTE 57 GM TUBE TOP SCH (10:13)
[2017-10-24 10:17] LABS: *BILIRUBIN,URIN NEGATIVE (NEGATIVE); *BLOOD, URINE 3+ (NEGATIVE); *CLARITY,URINE SLIGHTLY CLOUDY (CLEAR); *COLOR,URINE YELLOW (YELLOW); *KETONES,URINE NEGATIVE (NEGATIVE); *PROTEIN,URINE 1+ (NEGATIVE); *UROBILINOGEN,URINE 0.2 E.U./dl (NORMAL); LEUKOCYTE ESTERASE ,URINE NEGATIVE (NEGATIVE); NITRITE, URINE NEGATIVE (NEGATIVE); UGLUCOSE NEGATIVE (NEGATIVE)
[2017-10-24 10:55] LABS: BACTERIA,URINE NONE SEEN /HPF (NONE SEEN); RBC,URINE 20-50 /HPF (0-3); SQUAMOUS EPITHELIAL CELL,UR FEW /HPF (NONE SEEN)
[2017-10-24 10:56] LABS: URINE AMORPHOUS URATE MODERATE /HPF
[2017-10-24 11:00] LABS: *CREATININE,URINE 66.7 mg/dL (30-125); *URINE TOTAL PROTEIN RANDOM 64.6 mg/dL (<150/24HR)
--- NOTE | 2017-10-24 11:11 | NUR ---
PHARMACY CLINICAL NOTES(VANCOMYCIN DOSING) S: 87 YO MALE WITH DX OF UTI, SEPSIS AND HCAP O: BUN/SCR 82/4.4, WBC 10.3, TEMP 98.5 A/P: Will continue to dose by fall-off random level(ARF, not HD yet) due to decreased renal function. Last dose was given on 10/23. No dose is due today. Random ordered for 10/25/17 with am labs. Will follow
[2017-10-24 12:00] VITALS: BP 100/45
[2017-10-24] MEDS ORDERED: MORPHINE SULFATE PF IV DRIP 250 MG in IV DEXTROSE 5% 240 ML IV PRN (14:00)
--- NOTE | 2017-10-24 15:50 | NUR ---
PT TAKEN OFF BIPAP PER MR ORDERS. COMFORT MEASURES ONLY. Addendum: 10/24/17 at 1754 by BRYANT GANT RT PER MD ORDERS.
[2017-10-24 16:04] VITALS: BP 107/44
[2017-10-24 17:00] VITALS: BP 107/43
--- NOTE | 2017-10-24 19:30 | NUR ---
ASLEEP.LETHARGIC,ON MORPHINE DRIP.PTS SON DAVIAN MCNEIL REGARDING CONDITION OF PT.
--- NOTE | 2017-10-24 21:00 | NUR ---
PT AT 2158. SON CALLED,NOTIFIED OF PT EXPIRATION.[employer] CALLED . CALLED,PHOTOGRAPHY INSTRUCTOR NOTIFIEDPT PT READY FOR [employer].
== END 2017-10-24 23:17 | disposition expired | DRG 871 ==
LOC: ER 01:42 → CCU 03:30 → TELE 10-22 19:00
PROVIDERS: ADMIT Nurse Practitioner Acute Care; ATTEND Internal Medicine
PROC: 5A1945Z Respiratory Ventilation, 24-96 Consecutive Hours (ICD-10-PCS; principal; 2017-10-20)
PROC: 0BH17EZ Insertion of Endotracheal Airway into Trachea, Via Natural or Artificial Opening (ICD-10-PCS; 2017-10-20)
PROC: 02HV33Z Insertion of Infusion Device into Superior Vena Cava, Percutaneous Approach (ICD-10-PCS; 2017-10-20)
PROC: B548ZZA Ultrasonography of Superior Vena Cava, Guidance (ICD-10-PCS; 2017-10-20)
PROC: 5A09457 Assistance with Respiratory Ventilation, 24-96 Consecutive Hours, Continuous Positive Airway Pressure (ICD-10-PCS; 2017-10-22)
DX: A41.02 Sepsis due to Methicillin resistant Staphylococcus aureus (principal); R65.21 Severe sepsis with septic shock; I21.A1 Myocardial infarction type 2; J69.0 Pneumonitis due to inhalation of food and vomit; E43 Unspecified severe protein-calorie malnutrition; G92 Toxic encephalopathy; J96.01 Acute respiratory failure with hypoxia; N17.0 Acute kidney failure with tubular necrosis; J96.02 Acute respiratory failure with hypercapnia; R13.10 Dysphagia, unspecified; I50.33 Acute on chronic diastolic (congestive) heart failure; D68.59 Other primary thrombophilia; N39.0 Urinary tract infection, site not specified; I13.0 Hypertensive heart and chronic kidney disease with heart failure and stage 1 through stage 4 chronic kidney disease, or unspecified chronic kidney disease; E87.0 Hyperosmolality and hypernatremia; R47.01 Aphasia; Z51.5 Encounter for palliative care; Z66 Do not resuscitate; E11.22 Type 2 diabetes mellitus with diabetic chronic kidney disease; N28.1 Cyst of kidney, acquired; Z68.30 Body mass index [BMI] 30.0-30.9, adult; K59.09 Other constipation; M10.9 Gout, unspecified; E66.9 Obesity, unspecified; N18.9 Chronic kidney disease, unspecified; E86.0 Dehydration; G31.09 Other frontotemporal neurocognitive disorder; F02.80 Dementia in other diseases classified elsewhere, unspecified severity, without behavioral disturbance, psychotic disturbance, mood disturbance, and anxiety; Z88.0 Allergy status to penicillin; Z79.899 Other long term (current) drug therapy; Z99.3 Dependence on wheelchair; D64.9 Anemia, unspecified; K59.00 Constipation, unspecified; E87.8 Other disorders of electrolyte and fluid balance, not elsewhere classified
CPT/HCPCS: 36415; 36569; 36600; 70030-TC; 71010; 74000; 76770; 83605; 83735; 84100; 84156; 84300; 84443; 85025; 85730; 87040; 87070; 87077; 87086; 93005; 93307; 94002; 94003; 94640; 94660; 94664; A4663; C9113; J0330; J1644; J1940; J1956; J2060; J2185; J2250; J2274; J2405; J3370; J3490; J3590; J7030; J7040; J7060